=== PATIENT | male | born 1990 | race Caucasian/White ===

== ENCOUNTER 2021-03-18 22:42 | Emergency (ER) | payer SELFPAY ==
[~2021-03-18] VITALS: Ht 190.5 cm; Wt 93.0 kg
[2021-03-18] MEDS ORDERED: ONDANSETRON PF 4 MG/2 ML VIAL. IVP ONE (23:15)
[2021-03-18] MEDS ORDERED: IV NORMAL SALINE 1000ML BAG 1,000 ML IV ONE (23:15)
--- NOTE | 2021-03-18 23:21 | PHYS DOC ---
General Adult EDM: Chief Complaint: OVERDOSE HPI: HPI: Patient is a 31-year-old male who presents to the emergency department via EMS for overdose. EMS home visitor home [facility] start reports a auricular therapist crew first on scene administered intranasal Narcan 2 mg while CPR was in progress, patient became alert prior to home visitor [facility] EMS crew arrival. [facility] Chem[facility] reports patient alert and oriented, vital signs stable other than heart rate tachycardic at 110, transported patient to [facility] ER. Patient reports he snorted what he thought was heroin, patient reports he thinks it may have been laced or may have been fentanyl instead, did not mean to overdose or lose consciousness. Denies homicidal or suicidal ideation. Patient reports he has a past history of IV drug abuse with heroin, has not used heroin in several years. Patient reports mild chest discomfort, denies shortness of breath, fever or chills, denies dizziness or visual disturbances. Patient denies headaches, sore throat nasal or chest congestion. Patient denies other physical complaints or physical concerns. Patient reports being a cigarette smoker, occasional alcohol drinker, occasional marijuana smoker, history of IV heroin abuse. Review of Systems: Review of Systems: 14 body systems of review of systems have been reviewed. See HPI for pertinent positives and negative responses, otherwise all other systems are negative, nonpertinent or noncontributory. Constitutional: Negative except as outlined in HPI above. Skin: Negative except as outlined in HPI above. Eyes: Negative except as outlined in HPI above. HENT: Negative except as outlined in HPI above. Respiratory: Negative except as outlined in HPI above. Cardiovascular: Negative except as outlined in HPI above. GI: Negative except as outlined in HPI above. : Negative except as outlined in HPI above. Musculoskeletal: Negative except as outlined in HPI above. Integument: Negative except as outlined in HPI above. Neurologic: Negative except as outlined in HPI above. Endocrine: Negative except as outlined in HPI above. Lymphatic: Negative except as outlined in HPI above. Psychiatric: Negative except as outlined in HPI above. Heart Score: C/O Chest Pain: Yes HEART Score for Chest Pain: HEART Score for Chest Pain Response (Comments) Value History Slighlty/Non-Suspicious 0 ECG Normal 0 Age < 45 0 Risk Factors 1 or 2 Risk Factors 1 Troponin < Normal Limit 0 Total 1 Risk Factors: Risk Factors: DM, Current or recent (<one month) smoker, HTN, HLP, family history of CAD, obesity. Risk Scores: Score 0 - 3: 2.5% MACE over next 6 weeks - Discharge Home Score 4 - 6: 20.3% MACE over next 6 weeks - Admit for Clinical Observation Score 7 - 10: 72.7% MACE over next 6 weeks - Early Invasive Strategies Physical Exam: PE: Constitutional: Well developed, well nourished, no acute distress, non-toxic appearance. 31-year-old male in no apparent distress. HENT: Normocephalic, atraumatic. Oropharynx moist, pink, no deep tissue infectious process appreciated. No raccoon eyes, no redding sign, no contusions of the scalp appreciated. Eyes: Conjunctiva normal, no discharge. PERRLA. Neck: Normal range of motion, no stridor. No midline spinal or C-spine muscular structural neck pain to palpation. Cardiovascular: No cyanosis appreciated, distal cap refill less than 2 seconds. Tachycardic rate at 110 bpm during physical examination. Lungs & Thorax: Patient is in no respiratory distress, no audible adventitious lung sounds appreciated. Pain to palpation of the anterior thorax. No bruising, no crepitus, no subcu air appreciated. No adventitious lung sounds appreciated for auscultation. Abdomen: Nontender, no abnormalities noted. Skin: Warm, dry, no erythema, no rash. Back: No tenderness, no deformities. Extremities: No tenderness, no cyanosis, no clubbing, ROM intact, no edema. Neurologic: Alert and oriented X 3, normal motor function, normal sensory function, no focal deficits noted. Psychologic: Affect normal, judgement normal, mood normal. EKG: EKG: EKG performed at 2250 shows a sinus tachycardia with a right bundle branch block, heart rate 116 bpm, TX interval 0.130, QTc interval 0.431, no acute STEMI, no ACS, no acute ischemia appreciated, EKG interpreted by ED attending physician Dr. Mayen. Repeat EKG at 00 53 shows a normal sinus rhythm with an incomplete right bundle branch block, heart rate 95 bpm, no other ectopy appreciated, TX interval 0.128, QTc interval appointment 418, no acute STEMI, no ACS, noted acute ischemia appreciated, EKG interpreted by ED attending physician Dr. Mayen. Radiology/Procedures: Radiology/Procedures: STATUS: REG ER ORD. PHYSICIAN: FREDDY PÉREZ APRN REASON: Overdose, CPR blood work 10:55 PROCEDURE: CHEST AP ONLY XR CHEST 1V INDICATION: Overdose, CPR blood work 10:55 COMPARISON STUDY: None. FINDINGS: Lungs: Normal lung volume. No pulmonary mass or consolidation. The tracheobronchial tree and hilar structures are normal. Pleura: No pleural effusion or pneumothorax. Heart and Mediastinum: The cardiomediastinal silhouette is normal. The great vessels of the thorax are normal. Bones and Soft Tissues: The bones and soft tissues are within normal limits. IMPRESSION: No acute cardiopulmonary process. Electronically signed by: Herbert Ko MD (03/18/2021 11:53 PM) [facility] Course & Med Decision Making: Course & Med Decision Making Pertinent Labs and Imaging studies reviewed. (See chart for details) 31-year-old male, vital signs reviewed, presents to the emergency department concerning drug overdose, decreased LOC, CPR, Narcan administration. Physical examination unremarkable except for tachycardia. Patient reports snorting what he thought was heroin but may have been laced with fentanyl. Patient does report a history of IV heroin drug abuse however reports he has not used in several years. Patient denies homicidal or suicidal ideations. The patient is alert and oriented and clinically sober at this time. Discussed with patient related to overdose requiring Narcan reversal and CPR chest compressions, will order a chest x-ray, cardiac enzymes to rule out acute cardiac damage, acute aspiration pneumonia, will order EKG, lab work CBC, CMP, sensitivity troponin I, BNP pro NT, cardiac enzymes to rule out endorgan damage related to CPR and drug overdose. Will monitor cardiac activity, noninvasive blood pressure, pulse oximetry for at least 2 hours, if no adverse changes will reevaluate for discharge to home. Patient gave verbal understanding of and is amenable to ED planning. Patient will be treated prophylactically with 1 L normal saline and 4 mg onto Septra on IV. Patient's EKG tachycardic with concerning right bundle branch block, there was no previous EKG to compare to, after normal saline and most likely heart rate reducing under 102 normal sinus rhythm will repeat EKG for evaluation. After monitoring the patient for 2 hours and 20 minutes, there were no adverse events, improvement with tachycardia to normal sinus rhythm, patient remains alert and oriented and in no apparent distress, is not toxic in appearance, discussed patient discharge instructions, illicit drug use cessation, but with primary care soon, return to ER precautions or concerns, patient gave verbal understanding of and is amenable to ED discharge planning. Discussed with the patient all findings and diagnostic testing as well as the need to follow-up with their primary care provider for further evaluation and treatment or return to the ED if any new or worsening symptoms. Strict return precautions were also discussed at length, the patient voiced understanding and agreement with the discharge planning. The patient was nontoxic in appearance, in no apparent distress, and hemodynamically stable at the time of disposition. Dragon Disclaimer: Dragon Disclaimer: This electronic medical record was generated, in whole or in part, using a voice recognition dictation system. Departure Departure Impression: Primary Impression: Drug overdose Qualified Codes: T50.901A - Poisoning by unspecified drugs, medicaments and biological substances, accidental (unintentional), initial encounter Disposition: HOME / SELF CARE / HOMELESS Condition: GOOD Referrals: [facility] TH[facility]PSON [facility], [facility] Patient Instructions: Overdose, Accidental Additional Instructions: You were seen today in the emergency department for an incidental drug overdose at home. You were monitored for 2 hours and there were no adverse events appreciated. As we discussed, there were concerning EKG changes that warrant further follow-up especially if you experience chest discomfort or chest pain. Please consider seeing one of the recommended family practice clinics or physicians that were given to you at discharge, please return to the emergency department for worsening symptoms or other concerns, please stop using illicit drugs. You may consider seeing cardiac exercise physiologist Dr. Thompson for evaluation of cardiac status. Thank you for visiting our Emergency Department. It was a pleasure taking care of you today in the emergency department and we appreciate you trusting us with your care. If any additional problems come up don't hesitate to return to visit us. Please follow up with your primary care provider so they can plan additional care if needed and know about the problem that you had. If symptoms worsen come back to the Emergency Department. Any concerning symptoms that start such as chest pain, shortness of air, weakness or numbness on one side of the body, running high fevers or any other concerning symptoms return to the ER. EMERGENCY DEPARTMENT GENERAL DISCHARGE INSTRUCTIONS Thank you for coming to [facility] Emergency Department (ED) today and trusting us with you care. We trust that you had a positive experience in our Emergency Department. If you wish to speak to the department management, you may call the Director at [phone]. YOUR FOLLOW UP INSTRUCTIONS ARE FOLLOWS: 1. Do you have a private Doctor? If you do not have a private doctor, please ask for a resource list of physicians or clinics that may be able to assist you with follow up care. 2. The Emergency Physicain has interpreted your x-rays. The X-Ray specialist will also review them. If there is a change in the findings, you will be notified in 48 hours when at all possible. 3. A lab test or culture has been done, your results will be reviewed and you will be notified if you need a change in treatment. ADDITIONAL INSTRUCTIONS AND INFORMATION: 1. Your care today has been supervised by a physician who is specially trained in emergency care. Many problems require more than one evaluation for a complete diagnosis and treatment. We recommend that you schedule your follow up appointment as recommended to ensure complete treatment of you illness or injury. If you are unable to obtain follow up care and continue to have a problem, or if your condition worsens, we recommend that you return to the ED. 2. We are not able to safely determine your condition over the phone nor are we able to give sound medical advice over the phone. For these safety reasons, if you call for medical advice we will ask you to come to the ED for further evaluation. 3. If you have any questions regarding these discharge instructions please call the ED at [phone]. SAFETY INFORMATION: In the interest of safety, wellness, and injury prevention; we encourage you to wear your sealbelt, if you smoke; quite smoking, and we encourage family to use a protective helmet for bicycling and other sporting events that present an increased risk for head injury. IF YOUR SYMPTOMS WORSEN OR NEW SYMPTOMS DEVELOP, OR YOU HAVE CONCERNS ABOUT YOUR CONDITION; OR IF YOUR CONDITION WORSENS WHILE YOU ARE WAITING FOR YOUR FOLLOW UP APPOINTMENT; EITHER CONTACT YOUR PRIMARY CARE DOCTOR, THE PHYSICIAN WHOSE NAME AND NUMBER YOU WERE GIVEN, OR RETURN TO THE ED IMMEDIATELY. FREDDY PÉREZ APRN Mar 18, 2021 23:20
[2021-03-18 23:32] LABS: BASO % 0 % (0-3); EOS # 0.2 x10^3/uL (0.0-0.7); EOS % 3 % (0-3); HEMATOCRIT 44.7 % (39.0-53.0); HEMOGLOBIN 15.1 g/dL (13.0-17.5); LYMPH # 1.2 x10^3/uL (1.0-4.8); LYMPH % 16 % (24-48); MEAN CORPUSCULAR HEMOGLOBIN 32 pg (25-35); MEAN CORPUSCULAR HGB CONC 34 g/dL (31-37); MEAN CORPUSCULAR VOLUME 94 fL (79-100); MONO # 0.4 x10^3/uL (0.0-1.1); MONO % 6 % (0-9); NEUT # 5.4 x10^3/uL (1.8-7.7); NEUT % 75 % (31-73); PLATELET COUNT 197 x10^3/uL (140-400); RED BLOOD COUNT 4.75 x10^6/uL (4.30-5.70); WHITE BLOOD COUNT 7.2 x10^3/uL (4.0-11.0)
[2021-03-18 23:40] LABS: CALCIUM 8.6 mg/dL (8.5-10.1); GFR 86.1; POTASSIUM 3.9 mmol/L (3.5-5.1)
[2021-03-18 23:44] LABS: ACETAMIN < 2 mcg/ml (10-30); ETHANOL < 10 mg/dL (0-10); SALIC 1.4 mg/dL (2.8-20.0)
[2021-03-18 23:48] LABS: ALBUMIN 3.8 g/dL (3.4-5.0); ALBUMIN/GLOBULIN RATIO 1.1 (1.0-1.7); TOTAL BILIRUBIN 0.3 mg/dL (0.2-1.0); TOTAL PROTEIN 7.3 g/dL (6.4-8.2)
--- NOTE | 2021-03-18 23:56 | RAD ---
XR CHEST 1V INDICATION: Overdose, CPR blood work 10:55 COMPARISON STUDY: None. FINDINGS: Lungs: Normal lung volume. No pulmonary mass or consolidation. The tracheobronchial tree and hilar st ructures are normal. Pleura: No pleural effusion or pneumothorax. Heart and Mediastinum: The cardiomediastinal silhouette is normal. The great vessels of the thorax ar e normal. Bones and Soft Tissues: The bones and soft tissues are within normal limits. IMPRESSION: No acute cardiopulmonary process. Electronically signed by: Herbert Ko MD (03/18/2021 11:53 PM) [facility]
[2021-03-19 00:18] LABS: BILIRUBIN,URINE NEGATIVE (NEG); CLARITY,URINE CLEAR; COLOR,URINE YELLOW; NITRITE,URINE NEGATIVE (NEG); PH,URINE 6.5 (<5.0-8.0); PROTEIN,URINE 100 mg/dL (NEG-TRACE); UROBILINOGEN,URINE 0.2 mg/dL (0.2 mg/dL)
[2021-03-19 00:26] LABS: AMPHETAMINE/METHAMPHETAMINE POS (NEG); BARBITURATES NEG (NEG); BENZODIAZEPINES NEG (NEG); CANNABINOIDS NEG (NEG); COCAINE NEG (NEG); METHADONE NEG (NEG); OPIATES NEG (NEG); PHENCYCLIDINE NEG (NEG)
[2021-03-19 00:29] LABS: BACTERIA,URINE 0 /HPF (0-FEW); RBC,URINE OCC /HPF (0-2); WBC,URINE OCC /HPF (0-4)
--- NOTE | 2021-03-19 01:17 | EKG ---
[facility] [address] [place] [address] Test Date: 2021-03-19 Test Time: 00:53:12 Pat Name: GEMMA RAPHAEL Department: Room: Gender: Brand Strategy Manager: : [id number] Requested By: FREDDY PÉREZ Order Number: [id number] Reading MD: Luca Sotelo Measurements Intervals [place] Rate: 95 P: 71 ND: 128 QRS: 33 QRSD: 94 T: 43 QT: 330 QTc: 418 Interpretive Statements SINUS RHYTHM INCOMPLETE RIGHT BUNDLE BRANCH BLOCK Electronically Signed On 03-23-2021 17:07:09 LIFT DRIVER by Luca Sotelo
[2021-03-19 01:23] VITALS: BP 154/93
== END 2021-03-19 01:30 | disposition home or self-care (01) ==
LOC: ER 22:42
DX: T40.2X1A Poisoning by other opioids, accidental (unintentional), initial encounter (principal); R00.0 Tachycardia, unspecified; R07.89 Other chest pain; F17.210 Nicotine dependence, cigarettes, uncomplicated; Y92.89 Other specified places as the place of occurrence of the external cause
CPT/HCPCS: 36415; 71045; 80053; 80307; 80329; 81001; 82553; 83880; 84484; 85025; 93005; 96361; 96374; 99285; G0480; J2405; J7030